=== PATIENT | female | born 1975 | race Caucasian/White ===

== ENCOUNTER 2025-07-29 06:53 | Emergency (ER) | payer MEDICARE ==
[2025-07-29 07:14] VITALS: TEMP 98.6
[2025-07-29] MEDS ORDERED: SODIUM CHLORIDE FLUSH 10 ML SYR IV PRN (07:15)
[2025-07-29 07:53] LABS: BASOPHILS % 0.3 % (0.0-1.0); EOSINOPHILS % 0.2 % (0.0-6.0); LYMPHOCYTES % 9.7 % (18.0-39.1); MONOCYTES % 6.8 % (4.4-11.3); NEUTROPHILS % 82.7 % (38.7-80.0); RED CELL DISTRIBUTION WIDTH 16.2 % (11.7-14.4)
[2025-07-29] MEDS: SODIUM CHLORIDE 0.9% 500ML 500 ML IV ONE (07:57)
[2025-07-29] MEDS: ASPIRIN 81 MG CHEW TAB PO ONE (07:57)
[2025-07-29 08:16] LABS: EST GLOMERULAR FILTRATION RATE 102 ML/MIN (>=60)
[2025-07-29 08:28] LABS: AMPHETAMINES SCREEN,URINE NEGATIVE (NEGATIVE); OPIATES SCREEN,URINE POSITIVE (NEGATIVE)
[2025-07-29 08:29] LABS: CANNABINOIDS SCREEN,URINE POSITIVE (NEGATIVE); COCAINE SCREEN,URINE NEGATIVE (NEGATIVE); METHADONE SCREEN, URINE NEGATIVE (NEGATIVE)
[2025-07-29] MEDS: ONDANSETRON HCL INJ 2MG/ML 2ML 2 MG/ML VIAL IV STA (09:05)
[2025-07-29] MEDS: CLONAZEPAM 1 MG TAB PO STA (09:06)
[2025-07-29] MEDS: ACETAMINOPHEN 325 MG TAB PO ONE (10:24)
[2025-07-29 10:48] VITALS: PULSE 98; RESP 21; O2SAT 98
== END 2025-07-29 11:29 | disposition home or self-care (01) ==
LOC: ER 06:57
DX: R07.89 Other chest pain (principal); I10 Essential (primary) hypertension; J44.9 Chronic obstructive pulmonary disease, unspecified; I50.9 Heart failure, unspecified; G40.909 Epilepsy, unspecified, not intractable, without status epilepticus; F41.9 Anxiety disorder, unspecified; Z85.89 Personal history of malignant neoplasm of other organs and systems; F17.210 Nicotine dependence, cigarettes, uncomplicated
CPT/HCPCS: 36415; 71046; 80053; 80307; 83880; 84484; 84702; 85025; 93005; 94760; 99284; J2405; J7040